=== PATIENT | male | born 1965 | race Caucasian/White ===

== ENCOUNTER 2017-10-10 11:53 | Emergency (ER) | payer SELFPAY ==
[~2017-10-10 11:53] MED LIST: CEPH500 PO; DICL50 PO; NAPR550 PO; SULF-154 PO; Z.0.NO CURRENT MEDS
[2017-10-10 11:56] VITALS: BP 142/82; PULSE 69; RESP 16; TEMP 98.2; O2SAT 98
[2017-10-10] MEDS ORDERED: KETOROLAC TROMETHAMINE 60 MG/2 ML (IM) VIAL IM ONE (12:45)
[2017-10-10] MEDS ORDERED: DIAZEPAM 5 MG TAB PO ONE (12:45)
[2017-10-10] MEDS ORDERED: ROBA750T PO (13:15)
[2017-10-10] MEDS ORDERED: TRAM50 PO (13:15)
[2017-10-10] MEDS ORDERED: IBUP1TAB7 PO (13:15)
--- NOTE | 2017-10-10 13:16 | PD ---
HPI Chief Complaint: Back/ Neck Pain or Injury Time Seen by Provider: 12:27 Travel History International Travel<30 days: No Contact w/Intl Traveler<30days: No Traveled to known affect area: No History of Present Illness HPI This is a 52-year-old male with "sciatica pain" 5 days. He reports a history of sciatica with similar pain in the past. Pain developed 5 days ago when he bent forward to warp picker something off the floor. He has had pain within the low back that radiates down the leg since. No incontinence, fever, saddle anesthesia, paresthesia or weakness of the extremities. Symptom severity is moderate. Aggravated by movement slightly relieved with rest. PFSH Past Medical History Asthma: Yes Diminished Hearing: No Respiratory: Yes (ASTHMA) Tetanus Vaccination: Unknown Influenza Vaccination: No Social History Alcohol Use: No Tobacco Use: Yes (2 CIGS PER DAY) Substance Use: No Allergies-Medications (Allergen,Severity, Reaction): Coded Allergies: No Known Allergies (Verified Adverse Reaction, Unknown, 10/10/17) Reported Meds & Prescriptions Reported Meds & Active Scripts Active Review of Systems Except as stated in HPI: all other systems reviewed are Neg General / Constitutional: No: Fever Eyes: No: Visual changes HENT: No: Headaches Cardiovascular: No: Chest Pain or Discomfort Respiratory: No: Shortness of Breath Gastrointestinal: No: Abdominal Pain Genitourinary: No: Dysuria Skin: No Rash Neurologic: No: Weakness Physical Exam Narrative GENERAL: Alert and well-appearing 52-year-old male. SKIN: Warm and dry. HEAD: Normocephalic. EYES: No scleral icterus. No injection or drainage. NECK: Supple CARDIOVASCULAR: Regular rate and rhythm RESPIRATORY: Breath sounds equal bilaterally. No accessory muscle use. GASTROINTESTINAL: Abdomen soft, non-tender, nondistended. MUSCULOSKELETAL: No cyanosis, or edema. Normal strength and sensation in the lower extremities. Ambulates with a steady gait. BACK: +TTP right sacroiliac region into the right gluteal. No midline spine tenderness. Without obvious deformity. No CVA tenderness. Data Data Last Documented VS Vital Signs Date Time Temp Pulse Resp B/P (MAP) Pulse Ox O2 Delivery O2 Flow Rate FiO2 10/10/17 11:56 98.2 69 16 142/82 (102) 98 Orders Orders Ketorolac Inj (Toradol Inj) (10/10/17 12:45) Diazepam (Valium) (10/10/17 12:45) [facility] Medical Decision Making Medical Screen Exam Complete: Yes Emergency Medical Condition: Yes Differential Diagnosis Sciatica, lumbar strain, herniated disc Narrative Course 52-year-old male with low back pain. His exam is consistent with sciatica. Is a normal neurologic exam. He was given a shot of Toradol and Valium and reports moderate symptom improvement. He will be discharged home with ibuprofen , Robaxin, Ultram. Diagnosis Primary Impression: Sciatica Qualified Codes: M54.31 - Sciatica, right side Referrals: Primary Care Physician Departure Forms: Tests/Procedures, Work Release Enter return to work date: Oct 13, 2017 Additional Instructions: Medication as directed. Begin light stretches tomorrow. Ice and/or heat for comfort. Follow-up with her primary doctor. Scripts Tramadol (Ultram) 50 Mg Tab 50 MG PO Q6H Y for PAIN, #8 TAB 0 Refills Prov: Cristy Birch 10/10/17 Methocarbamol (Robaxin) 750 Mg Tab 750 MG PO QID for Muscle Spasm, #12 TAB 0 Refills Prov: Cristy Birch 10/10/17 Ibuprofen (Ibuprofen) 800 Mg Tab 800 MG PO Q6HR Y for PAIN, #40 TAB 0 Refills Prov: Cristy Birch 10/10/17 Disposition: 01 DISCHARGE HOME Condition: Stable Cristy Birch Oct 10, 2017 13:16
== END 2017-10-10 13:40 | disposition home or self-care (01) ==
LOC: PHEFT 11:53
DX: M54.41 Lumbago with sciatica, right side (principal); J45.909 Unspecified asthma, uncomplicated; F17.210 Nicotine dependence, cigarettes, uncomplicated
CPT/HCPCS: 96372; 99283; J1885